=== PATIENT | female | born 1935 | race Caucasian/White ===

== ENCOUNTER 2018-01-30 08:33 | Day surgery (SDC) | payer OTHER ==
[~2018-01-30] VITALS: Ht 162.6 cm; Wt 65.0 kg
[~2018-01-30 08:33] MED LIST: ANASTROZOLE5 GM PO; ATOR10 PO; Aspirin325 MG PO; Coq-10100 MG PO; EXTRA STRENGTH500 MG PO; FISH OIL 1,0001 EAC1 PO; FLAX SEED OIL1000 MG PO; LISI20 PO; NAPR500 PO; OCUVITE EYE +1 EACH PO
== END 2018-01-30 10:38 | disposition home or self-care (01) ==
LOC: ORSCSDS 08:33
PROVIDERS: Surgery
PROC: 0DJD8ZZ Inspection of Lower Intestinal Tract, Via Natural or Artificial Opening Endoscopic (ICD-10-PCS; principal; 2018-01-30 10:00)
DX: Z12.11 Encounter for screening for malignant neoplasm of colon (principal); K64.8 Other hemorrhoids; I10 Essential (primary) hypertension; E78.5 Hyperlipidemia, unspecified; Z79.82 Long term (current) use of aspirin; Z79.899 Other long term (current) drug therapy
CPT/HCPCS: J7120

== ENCOUNTER → 2018-06-07 | Outpatient (CLI) | payer OTHER | END | disposition home or self-care (01) | LOC: LAB SHORT 13:24 → LAB 13:24 | DX: N39.0 Urinary tract infection, site not specified (principal) | CPT/HCPCS: 87077; 87086; 87186 ==

== ENCOUNTER 2018-08-28 17:50 | Inpatient (IN) | payer OTHER ==
[~2018-08-28] VITALS: Ht 162.6 cm; Wt 64.5 kg
[~2018-08-28 17:50] MED LIST changes: +ACETAMINOPHEN500 MG PO; -EXTRA STRENGTH500 MG PO
[2018-08-28 18:27] LABS: BASOPHILS ABSOLUTE AUTO 0.03 K/mm3 (0.00-0.23); BASOPHILS PERCENT AUTO 0 % (0-2); EOSINOPHILS ABSOLUTE AUTO 0.16 K/mm3 (0.00-0.68); EOSINOPHILS PERCENT AUTO 2 % (0-6); Hematocrit 36.1 % (33.0-51.0); IMMATURE GRAN ABSOLUTE AUTO 0.01 K/mm3 (0.00-0.10); IMMATURE GRAN PERCENT AUTO 0 % (0-1); LYMPHOCYTES PERCENT AUTO 24 % (21-46); MONOCYTES ABSOLUTE AUTO 0.68 K/mm3 (0.16-1.47); MONOCYTES PERCENT AUTO 10 % (4-13); Mean Corpuscular HGB 31.2 pg (26.0-34.0); Mean Corpuscular HGB Conc 33.2 g/dL (31.5-36.5); Mean Corpuscular Volume 94 fL (80-100); Mean Platelet Volume 8.5 fL (9.1-12.4); NEUTROPHILS ABSOLUTE AUTO 4.26 K/mm3 (1.96-9.15); NEUTROPHILS PERCENT AUTO 63 % (41-73); Platelet Count 277 K/mm3 (150-400); RDW Standard Deviation 44.9 fL (35.1-46.3); Red Blood Cell Count 3.85 M/mm3 (3.80-5.20); White Blood Cell Count 6.74 K/mm3 (4.00-11.30)
[2018-08-28 18:48] LABS: Troponin I <0.015 ng/mL (0.000-0.040)
[2018-08-28 18:54] LABS: Alanine Aminotransfer (ALT/SGP 24 U/L (12-78); Albumin, Blood 4.1 g/dL (3.4-5.0); Albumin/Globulin Ratio 1.3 (0.8-1.8); Alk Phos 67 U/L (50-136); Anion Gap 7 mmol/L (6-16); Aspartate Aminotrans (AST/SGOT 23 U/L (12-37); Bilirubin, Total 0.6 mg/dL (0.1-1.0); Blood Urea Nitrogen 14 mg/dL (8-24); CO2, Blood 24 mmol/L (21-32); Calcium, Blood 9.4 mg/dL (8.5-10.1); Chloride, Blood 96 mmol/L (98-108); Creatinine, Blood 0.74 mg/dL (0.40-1.00); Globulin, Blood 3.2 g/dL (2.2-4.0); Glomerular Filtration Rate >60 (60-); Glucose, Blood 98 mg/dL (70-99); Potassium, Blood 3.7 mmol/L (3.5-5.5); Sodium, Blood 127 mmol/L (136-145); Total Protein, Blood 7.3 g/dL (6.4-8.2)
[2018-08-28] MEDS ORDERED: ANAS1 PO (18:54)
--- NOTE | 2018-08-29 05:23 | NUR ---
ADMIT PT ARRIVED TO ICU 5 AT 0415 VIA ER BED. PT STOOD TO TRANSFER TO ICU BED. PT IS ALERT AND ORIENTED. PT DENIES CHEST PAIN AT THIS TIME. PT WITH NITRO PASTE ON CHEST. VITAL SIGNS STABLE WITH PT ON ROOM AIR. NS INFUSING AT 100 ML/HR. PT UP TO TOILET TO VOID WITH SBA. WILL CONTINUE TO MONITOR AND REPORT OFF TO ONCOMING RN.
[2018-08-29 05:48] LABS: Anion Gap 6 mmol/L (6-16); Blood Urea Nitrogen 12 mg/dL (8-24); Bun/Creatinine Ratio 18.7 (12.0-20.0); CO2, Blood 25 mmol/L (21-32); Calcium, Blood 8.5 mg/dL (8.5-10.1); Chloride, Blood 99 mmol/L (98-108); Creatinine, Blood 0.64 mg/dL (0.40-1.00); Glomerular Filtration Rate >60 (60-); Glucose, Blood 93 mg/dL (70-99); Potassium, Blood 4.3 mmol/L (3.5-5.5); Sodium, Blood 130 mmol/L (136-145); Troponin I 0.279 ng/mL (0.000-0.040)
--- NOTE | 2018-08-29 07:26 | NUR ---
ASSUMED CARE PT. ALERT AND ORIENTED THIS AM, ABLE TO REPOSITION SELF IN BED NEEDED. VSS THIS AM, PT DENIES ANY CHEST PAIN OR PRESSURE THIS AM. PT. DOES HAVE TOPICAL NITRO IN PLACE AT THIS TIME-PLACED BY LOGISTICS MANAGER RN. PT. CURRENTLY ON RA. NO S/S OF DISTRESS. CALL LIGHT IN REACH.
--- NOTE | 2018-08-29 07:30 | NUR ---
CALL TO DR. REIS REGARDING ELEVATED TROP.- SHE WILL BE UP TO SEE PT. WITHIN THE HOUR.
--- NOTE | 2018-08-29 08:46 | NUR ---
DR. REIS IN TO SEE PT. PLANS FOR ECHO. CARDIOLOGY CONSULT PAGED (DR. HECK)
--- NOTE | 2018-08-29 09:37 | NUR ---
Echocardiogram completed.
--- NOTE | 2018-08-29 13:14 | NUR ---
UPDATE PT. UP TO BEDSIDE TOILET IN ROOM, ONLY NEEDING ASSISTANCE WITH CORDS/LINES. NO FURTHER CHEST PAIN REPORTED BY PATIENT.
--- NOTE | 2018-08-29 16:33 | NUR ---
DR. LOPEZ DIS IN TO SEE PT PLANS FOR ANGIOGRAM IN THE AM. PT TO BE STARTED ON HEPARIN. PT CONTINUES TO DENY ANY CHEST PAIN OR PRESSURE. PT TO BE NPO AT MIDNIGHT.
--- NOTE | 2018-08-29 16:51 | NUR ---
ORDER CLARIFICATION CALL TO DR. RENEE AT THIS TIME HEPARIN TO BE STARTED; HOLD OFF ON STARTING PLAVIX AT THIS TIME.
[2018-08-29 17:55] LABS: International Normalized Ratio 0.96; Prothrombin Time Results 10.2 Sec (9.7-11.5)
--- NOTE | 2018-08-29 18:10 | NUR ---
SHIFT SUMMARY PT. REMAINS ALERT AND ORIENTED. PT. VSS T/O SHIFT. CONTINUES TO DENY CHEST PAIN OR PRESSURE T/O SHIFT. PL[facility] FOR [facility]. REPORT TO ONCOMING EDE.
--- NOTE | 2018-08-29 19:56 | NUR ---
START OF SHIFT: REPORT FROM OLVIN MERA. AT BEDSIDE, PT VERY PLEASANT. VSS. PT WITH NO C/O PAIN OR CHEST DISCOMFORT. CURRENTLY PT VISITING WITH FAMILY AT BEDSIDE.
--- NOTE | 2018-08-30 00:11 | NUR ---
SLEEP APNEA: AT APPROX 2200 PT WITH SATS 88%. UPON ENTERING PT'S ROOM PT ASLEEP WITH OBSTUCTED AIRWAY SOUNDS. PT AWAKENED EASILY AND DENIED HOME CPAP AND/OR SLEEP STUDY. PT PLACED ON O2 2L VIA N/C. SATS 97-99% WHILE ASLEEP.
[2018-08-30 02:42] LABS: Anion Gap 7 mmol/L (6-16); Blood Urea Nitrogen 16 mg/dL (8-24); Bun/Creatinine Ratio 22.7 (12.0-20.0); CO2, Blood 25 mmol/L (21-32); Calcium, Blood 8.8 mg/dL (8.5-10.1); Chloride, Blood 100 mmol/L (98-108); Creatinine, Blood 0.71 mg/dL (0.40-1.00); Glomerular Filtration Rate >60 (60-); Glucose, Blood 95 mg/dL (70-99); Potassium, Blood 4.5 mmol/L (3.5-5.5); Sodium, Blood 132 mmol/L (136-145)
--- NOTE | 2018-08-30 04:52 | NUR ---
PT RESTING T/O SHIFT. UP TO BSC PRN. PT STABLE ON FEET WALKING TO SINK TO BRUSH TEETH PRIOR TO FALLING ASLEEP. VSS.
--- NOTE | 2018-08-30 07:34 | NUR ---
ASSUMED CARE PT. ALERT AND ORIENTED THIS AM. REPORTS HEADACHE THIS AM HOWEVER REFUSING MEDICATIONS. PT. VSS THIS AM. PT. AWAITING SHOWROOM CONSULTANT PROCEDURE THIS AM AND HAS BEEN NPO SINCE MIDNIGHT. PT. REMAINS ON HEPARIN GTT THIS MORING AT 15U/KG/HR. NS INFUSING PER DR. HECK ORDER STARTED 3 HOURS PRIOR TO PROCEDURE. PT. CONTINUES TO DENY ANY CHEST PAIN OR PRESSURE. ON RA THIS AM. BED IN LOW POSITION CALL LIGHT IN REACH
--- NOTE | 2018-08-30 10:06 | NUR ---
PT BACK FROM PASSENGER RELATIONS REPRESENTATIVE DAUGHTER AT BEDSIDE. PT. HAD NO INTERVENTIONS DONE IN PASSENGER RELATIONS REPRESENTATIVE PER PASSENGER RELATIONS REPRESENTATIVE STAFF REPORT. PT. HAS TR BAND TO RIGHT RADIAL, SOFT, NO BRUISING OR OOZING NOTED. WILL DEFLATE PER ORDER. PT. VSS UPON ARRIVAL. CONTINUES TO DENY CHEST PAIN. PT. PROVIDED WITH ICE WATER AND COFFEE. HEPARIN GTT CONTINUES PER ORDER. CALL LIGHT IN REACH.
[2018-08-30 10:23] LABS: Mean Platelet Volume 8.5 fL (9.1-12.4); Platelet Count 225 K/mm3 (150-400)
[2018-08-30 10:55] LABS: D-Dimer, Quantitative 0.35 mg/L FEU (0.00-0.52)
--- NOTE | 2018-08-30 12:15 | NUR ---
TR BAND ATTEMPTED TO SLOWLY DEFLATE TR BAND AT THIS TIME; HOWEVER OOZING STARTED FROM PUNCTURE SITE. AIR REINSTILLED UNTIL OOZING STOPPED, WILL CONTINUE TO MONITOR.
--- NOTE | 2018-08-30 14:33 | NUR ---
SLOWLY DEFLATING TR BAND. PT. TOLERATING WELL, OOZING HAS STOPPED BAND BEING SLOWLY DEFLATED PER DR. GONZALEZ. PT. VSS. UP TO BEDSIDE COMMODE WITH MINIMAL ASSIST.
--- NOTE | 2018-08-30 18:00 | NUR ---
TR BAND OFF AT THIS TIME SMALL NARESH DRESSING WITH TEGADERM PLACED OVER ACCESS SITE DUE TO SMALL AMOUNT OF OOZING FROM SITE. NO SWELLING NOTED, NO HEMATOMA AT THIS TIME. PT VSS
--- NOTE | 2018-08-30 18:16 | NUR ---
SHIFT SUMMARY PT. REMAINS ALERT AND ORIENTED UP TO BED SIDE TOILET WITH STAND BY ASSIST. PT. VSS T/O SHIFT. NADN.TR BAND REMOVED AT 1800, NARESH AND CLEAR OCCLUSIVE DRESSING IN PLACE. ARM BOARD IN PLACE. PT. EDUCATED ON RESTRICTIONS TO USAGE OF RIGHT ARM. PLANS FOR PT TO DC IN THE AM. REPORT TO ONCJEANETTE MERA
--- NOTE | 2018-08-30 20:18 | NUR ---
PT TRANSFER: PT TRANSFERRING TO ROOM 356. REPORT CALLED TO LIUDMILA MERA. ALL QUESTIONS ANSWERED. PT WITH FAMILY AT BEDSIDE AND ARE GOING THROUGH PT'S BELONGINGS. PT A+O AND ACTUALLY REQUESTED TRANSFER TO HAPPEN PRIOR TO GOING TO SLEEP.
--- NOTE | 2018-08-30 21:23 | NUR ---
START OF SHIFT: REPORT FROM OLVIN MERA. PT IN ROOM WITH DAUGHTER AT BEDSIDE. RIGHT RADIAL SITE ASSESSED AND WAS WITHOUT BRUISING, SWELLING, OR DRAINAGE NOTED TO DRESSING. PT REQUESTED THAT IF SHE WAS GOING TO BE MOVED TO MEDICAL FLOOR THAT IT HAPPENED PRIOR TO HER GOING TO SLEEP. PT'S RIGHT RADIAL SITE REMAINED CLEAR T/O START OF SHIFT. PT WAS TRANSFERRED TO ROOM 356 VIA BED AND WAS TRANSFERRED TO ROOM 356 BED WITH STAND-BY ASSIST. PT SAT ONTO ROOM 356 BED AND RIGHT RADIAL SITE ASSESSED WITH RECEIVING RN LIUDMILA AND WAS CLEAR WITH NO SWELLING, BRUISING, OR DRAINAGE. THIS RN STEPPED OUT OF ROOM TO LEAVE. PT STATED, "IS THIS SUPPOSED TO BE LIKE THIS" (POINTING TO RIGHT WRIST). RIGHT WRIST WITH BULGING. THIS RN IMMEDIATELY HELD PRESSURE AND CALLED FOR TRANSFER OF PT BACK TO ICU. THIS RN HELD PRESSURE DURING ENTIRE TRANSFER BACK TO ICU WHERE OCC THERAPIST LAURA MET IN PT'S ROOM AND PLACED TR BAND WITH 7cc AIR ABOVE PREVIOUS ACCESS SITE AND REPLACED PREVIOUS DRESSING WITH NARESH HEMOSTAT DRESSING AND TEGADERM. ARM BOARD PLACED. WILL INFORM HOSPITALIST.
--- NOTE | 2018-08-30 21:49 | NUR ---
DR. REIS A/S CALLED: DR. DILLON LENS GENERATING MACHINE TENDER AND RECEIVED PHONE CALL. DR. DILLON INFORMED AND UPDATED RE: PT RIGHT RADIAL ACCESS SITE AND PT BACK INTO ICU. PT REMAINS MED/TELE STATUS. NO NEW ORDERS AT THIS TIME.
--- NOTE | 2018-08-30 23:07 | NUR ---
RIGHT RADIAL SITE CHECKED Q30' AND REMAINS WHEN PT FIRST BACK TO ROOM 5 POST TRANSFER. 7cc AIR REMAINS IN TR BAND. OXYMETER REMAINS ON RIGHT INDEX FINGER WITH SATS 95-97%.
[2018-08-31 03:30] LABS: Anion Gap 7 mmol/L (6-16); Blood Urea Nitrogen 17 mg/dL (8-24); Bun/Creatinine Ratio 22.8 (12.0-20.0); CO2, Blood 25 mmol/L (21-32); Calcium, Blood 8.6 mg/dL (8.5-10.1); Chloride, Blood 102 mmol/L (98-108); Creatinine, Blood 0.75 mg/dL (0.40-1.00); Glomerular Filtration Rate >60 (60-); Glucose, Blood 94 mg/dL (70-99); Potassium, Blood 4.1 mmol/L (3.5-5.5); Sodium, Blood 134 mmol/L (136-145)
--- NOTE | 2018-08-31 04:01 | NUR ---
TR BAND DEFLATED: TR BAND TITRATE-DEFLATION SINCE 0000 EVERY 30min. TR REMAINS IN PLACE. CIRC CHECK WNL C/ EACH DEFLATION. SOLOMON REMOVE TR BAND AND CONTINUE TO MONITOR.
--- NOTE | 2018-08-31 06:01 | NUR ---
TR BAND OFF 0530, ARM BOARD IN PLACE. BRUISING NOTED TO ANTERIOR WRIST AREA APPROX 3"x3". CIRC CHECK WNL. PRIOR TO REMOVING TR BAND, PT UP TO BS AND WAS ASSISTED WITH BEDBATH AND ORAL CARE. PT CURRENTLY SITTING UP IN BED WATCHING TV DRINKING COFFEE. WILL CONTINUE TO MONITOR R WRIST AND REPORT OFF TO ONCOMING RN.
--- NOTE | 2018-08-31 07:15 | NUR ---
START OF SHIFT NOTE: RECEIVED REPORT FROM SHEELA RN, ASSUMED CARE, PATIENT IS AWAKE AND ALERT AND ORIENTED, LUNG SOUNDS CLEAR, NSR WITH HR IN 50'S, TR BAND SITE ON RIGHT RADIAL SHOWS LARGE BRUISE, D/T REBLEED OF SITE LAST NIGHT, SITE IS SOFT, NONTENDER, AND NO HEMATOMA NOTED, ARM BOARD IN PLACE, PATIENT IS PLEASANT, BOWEL TONES IN ALL FOUR QUADRANTS, USES BSC WITH SBA TO URINATE, CALL LIGHT IN REACH, WILL CONTINUE TO MONITOR.
--- NOTE | 2018-08-31 08:50 | NUR ---
DR. REIS IN TO SEE PATIENT, DISCHARGE ORDERS WRITTEN, WILL FAX NEW PRESCRIPTIONS TO [facility] [address].
[2018-08-31] MEDS ORDERED: Prinivil10 MG PO (09:33)
[2018-08-31] MEDS ORDERED: Toprol Xl25 MG PO (09:36)
--- NOTE | 2018-08-31 10:47 | NUR ---
PATIENT DISCHARGED TO HOME, DISCHARGE INSTRUCTIONS VERBAL AND WRITTEN PROVIDED AND EXPLAINED, PATIENT AND DAUGHTER VERBALIZED UNDERSTANDING, EDUCATION BROCHURE ON ACS GIVEN, BOTH PIV'S REMOVED, PATIENT TOLERATED WELL, GETTING DRESSED WITH HELP OF DAUGHTER, WILL CALL WHEN READY, CALL LIGHT IN REACH, WILL CONTINUE TO MONITOR.
--- NOTE | 2018-08-31 10:58 | NUR ---
PATIENT LEFT HOSPITAL VIA WHEELCHAIR AT 10:55 THIS AM, DAUGHTER WAS PROVIDING RIDE HOME VIA CAR.
== END 2018-08-31 11:00 | disposition home or self-care (01) | DRG 281 ==
LOC: ER 17:50 → ICUE 17:51 → ER 17:51 → ICUE 17:51 → ERHOLD 17:51 → ICUE 17:52 → ER 21:58 → ICUE 21:58 → ERHOLD 21:58 → ICUE 21:58 → ERHOLD 08-29 04:15 → ICUE 08-29 04:15 → ERHOLD 08-30 16:53 → ICUE 08-30 16:53 → MEDS 08-30 20:52 → ICUE 08-30 20:52 → MEDS 08-30 21:00 → ICUE 08-31 11:00
PROVIDERS: Emergency Medicine; Internal Medicine Cardiovascular Disease; Pharmacist; ADMIT Hospitalist
PROC: B2111ZZ Fluoroscopy of Multiple Coronary Arteries using Low Osmolar Contrast (ICD-10-PCS; principal; 2018-08-30)
PROC: 4A023N7 Measurement of Cardiac Sampling and Pressure, Left Heart, Percutaneous Approach (ICD-10-PCS; 2018-08-30)
DX: I21.4 Non-ST elevation (NSTEMI) myocardial infarction (principal); E87.1 Hypo-osmolality and hyponatremia; I10 Essential (primary) hypertension; E78.5 Hyperlipidemia, unspecified; Z85.3 Personal history of malignant neoplasm of breast; Z79.82 Long term (current) use of aspirin; I25.10 Atherosclerotic heart disease of native coronary artery without angina pectoris
CPT/HCPCS: 36415; 71046; 80048; 80053; 84484; 85025; 85049; 85379; 85610; 85730; 93005; 93010; 93306; 93454; 99152; 99153; 99285-25; C1769; C1894; J1644; J2250; J3010; J7030; J7040; Q9967

== ENCOUNTER → 2019-07-04 | Outpatient (CLI) | payer OTHER ==
[~2019-07-04] MED LIST changes: +ANAS1 PO; +Prinivil10 MG PO; +Toprol Xl25 MG PO
== END | disposition home or self-care (01) ==
LOC: LAB 13:41 → LAB SHORT 13:41
DX: N39.0 Urinary tract infection, site not specified (principal)
CPT/HCPCS: 87077; 87086; 87186

== ENCOUNTER → 2019-11-12 | Outpatient (CLI) | payer OTHER | END | disposition home or self-care (01) | LOC: LAB SHORT 14:14 → LAB 14:14 | DX: N30.01 Acute cystitis with hematuria (principal) | CPT/HCPCS: 87077; 87086; 87186 ==

== ENCOUNTER → 2023-03-24 | Outpatient (CLI) | payer OTHER ==
[2023-03-24 16:33] LABS: BASOPHILS ABSOLUTE AUTO 0.02 K/mm3 (0.00-0.23); BASOPHILS PERCENT AUTO 0 % (0-2); EOSINOPHILS ABSOLUTE AUTO 0.01 K/mm3 (0.00-0.68); EOSINOPHILS PERCENT AUTO 0 % (0-6); Hematocrit 31.9 % (33.0-51.0); Hemoglobin 10.7 g/dL (11.5-16.0); IMMATURE GRAN PERCENT AUTO 1 % (0-1); LYMPHOCYTES ABSOLUTE AUTO 1.73 K/mm3 (0.84-5.20); LYMPHOCYTES PERCENT AUTO 16 % (21-46); MONOCYTES ABSOLUTE AUTO 1.49 K/mm3 (0.16-1.47); MONOCYTES PERCENT AUTO 14 % (4-13); Mean Corpuscular HGB Conc 33.5 g/dL (31.5-36.5); Mean Corpuscular Volume 99 fL (80-100); Mean Platelet Volume 8.3 fL (9.1-12.4); NEUTROPHILS ABSOLUTE AUTO 7.35 K/mm3 (1.96-9.15); NEUTROPHILS PERCENT AUTO 69 % (41-73); Platelet Count 449 K/mm3 (150-400); RDW Coefficient Variation 13.1 % (11.7-14.2); RDW Standard Deviation 47.5 fL (35.1-46.3); Red Blood Cell Count 3.24 M/mm3 (3.80-5.20)
[2023-03-24 17:07] LABS: Albumin, Blood 4.1 g/dL (3.4-5.0); Albumin/Globulin Ratio 1.2 (0.8-1.8); Bilirubin, Total 1.3 mg/dL (0.1-1.0); Bun/Creatinine Ratio 35.6 (12.0-20.0); Calcium, Blood 9.7 mg/dL (8.5-10.1); Creatinine, Blood 1.6 mg/dL (0.40-1.00); Globulin, Blood 3.3 g/dL (2.2-4.0); Potassium, Blood 4.7 mmol/L (3.5-5.5); Total Protein, Blood 7.4 g/dL (6.4-8.2)
== END | disposition home or self-care (01) ==
LOC: LAB 16:19 → LAB SHORT 16:19
PROVIDERS: Family Medicine
DX: N39.0 Urinary tract infection, site not specified (principal)
CPT/HCPCS: 80053; 85025; 87040

== ENCOUNTER → 2023-04-05 | Outpatient (CLI) | payer OTHER | LOC: LAB 09:50 → LAB SHORT 09:50 | DX: R30.0 Dysuria (principal) | CPT/HCPCS: 87086 ==